=== PATIENT | male | born 1985 | race Caucasian/White ===

== ENCOUNTER 2019-09-15 14:26 | Emergency (ER) | payer SELFPAY ==
[~2019-09-15] VITALS: Ht 180.3 cm; Wt 99.8 kg
[2019-09-15] MEDS ORDERED: SODIUM CHLORIDE 0.9% 1000ML 1,000 ML IV SCH (15:30)
[2019-09-15] MEDS ORDERED: SODIUM CHLORIDE 0.9% 1000ML 1,000 ML ONE (15:40)
[2019-09-15] MEDS ORDERED: VANCOMYCIN 1GM/NS 250 ML 250 ML IV ONE (16:00)
--- NOTE | 2019-09-15 16:08 | Emergency Department Note ---
History of Present Illnes History of Present Illness Chief Complaint: Drug Abuse/Intoxication History of Present Illness Patient is a 34-year-old male, with history of IV drug abuse, who presents with a three-day history of progressive redness, swelling, pain of the dorsal aspect of the left hand. Patient has a history of injection drug use, and states that earlier this week he did inject heroin into the left hand. He states that he may have injected into the tissues, rather than the vein. He denies any fever, chills, nausea or vomiting. Historian: Patient Arrival Mode: [employer] Required: No Onset (how long ago): day(s) (3) Location: left hand Quality: left hand Radiation: non-radiation Severity: severe Onset quality: sudden Duration (how long): day(s) (3) Timing of current episode: constant Progression: worsening Relieving factors: none Exacerbating factors: none Associated symptoms: denies other symptoms Treatments prior to arrival: NSAID, antipyretic Risk factors: IVDA Past Medical/Family History Physician Review I have reviewed the patient's past medical and family history. Any updates have been documented here. Past Medical History Recent Fever: No Clinical Suspicion of Infectio: Yes New/Unexplained Change in Ment: No Other Medical History: IVDA Past Surgical History: Back Surgery Other Surgery: Mammoplasty - due to gynecomastia Social History Smoking Cessation: Current every day smoker Counseling Performed: Yes Alcohol Use: Occasional Any Illegal Drug Use: Yes (heroin) TB Exposure/Symptoms: No Physically hurt or threatened: No Family History Family history of heart diseas: No Other Last Tetanus: 2-3 years ago Any Pre-Existing Lines (PICC,: No Is patient up to date on immun: No Review of Systems Review of Systems Constitutional: no symptoms EENTM: no symptoms Cardiovascular: no symptoms Respiratory: no symptoms Gastrointestinal: no symptoms Musculoskeletal: no symptoms, other (pain, swelling and redness of dorsal aspect of left hand) Neurological: no symptoms Review of other systems All other systems reviewed and negative. Physical Exam Related Data Allergies: Coded Allergies: No Known Allergies (Unverified , 09/15/19) Vital signs reviewed: Yes Physical Exam CONSTITUTIONAL Constitutional: well-developed, well-nourished HENT HENT: normocephalic, atraumatic, oropharynx clear/moist, nose normal HENT L/R: left ext ear normal, right ext ear normal EYES Eyes: PERRL, conjunctivae normal NECK Neck: ROM normal PULMONARY Pulmonary: effort normal, breath sounds normal CARDIOVASCULAR Cardiovascular: regular rhythm, heart sounds normal, capillary refill normal, normal rate, other (no murmur or rub) GASTROINTESTINAL Abdominal: soft, nontender, bowel sounds normal GENITOURINARY SKIN Skin: warm, erythema, other (erythema, swelling, tenderness, and warmth of the dorsal aspect of the left hand, especially involving the 3rd, 4th and 5th fingers; No fluctuance; excoriations of both anterior tibial areas; large exoriation on the top of the left foot; no drainage;) MUSCULOSKELETAL Musculoskeletal: tenderness, swelling (dorsal aspect of left hand; no fluctuance;) NEUROLOGICAL Neurological: alert, oriented x 3, no gross motor or sensory deficits PSYCHOLOGICAL Psychological: mood/affect normal, judgement normal Results Laboratory Laboratory CBC - nl; CMP - nl, K = 3.5 Lab results reviewed: Yes Imaging Imaging results reviewed: Yes Impressions [place] [id number] Patient Name: FRANCISCA HEAD MR #: [id number] : 1985 Age/Sex: 34/M Req #: [id number] [facility] Physician: Ordered by: FAHAD SERNA MD Report #: [id number] Location: [facility] [place] Room/Bed: Procedure: [id number] HOPD/HAND 3 VIEW LT - HOPD Exam Date: 09/15/19 Exam Time: 1621 REPORT STATUS: Signed Exam: Left hand radiographs-3 views History: Cellulitis, injection drug use Comparison: None. Findings/Impression: No evidence of acute fracture or malalignment. Soft tissue edema in the hand. No evidence of bony erosion or periosteal reaction to suggest osteomyelitis. Signed by: Dr. Alana Kennedy MD on 09/15/2019 4:36 PM Dictated By: ALANA KENNEDY MD 34 Transcribed By: GREGOR on 09/15/191635 COPY TO: FAHAD SERNA MD~ Diagnostics Tests Diagnostic test(s) reviewed: Yes Critical Care Time Subsequent provider I assumed direction of critical care for this patient from another provider of my specialty. Assessment & Plan Assessment & Plan Final Impression: (1) Uses drugs by injection (2) Hand pain, left (3) Cellulitis of hand, left Assessment & Plan - Pt refused admission to the hospital, due to desire to go out and smoke, ad lia. Declined Nicotine patch. - Pt received nearly the full dose of IV Vancomycin and then he took out his own IV. The Unasyn 1.5 gram was given IM. Return to the ER, if you develop fever, chill, nausea, vomiting, worsening pain, swelling or redness of the left hand, or if other sores begin to look infected. Take ALL antibiotics, and take with food. *Elevate the left hand above the level of the heart, to help with pain and swelling. Apply ice to the area, to help with pain, as well.* Follow-up with [facility] in [facility] [phone] or [facility] [phone]. You may take Ibuprofen 200 mg - 4 tabs together every 8 hours (3x/day), as needed, for pain. Depart Disposition: HOME, SELF-retirement Meds Active Scripts Clindamycin Hcl (CLINDAMYCIN HCL) 150 Mg Capsule, 300 MG PO QID for infection for 10 Days, #40 TAB 0 Refills 2 TABS PO TID Prov:FAHAD SERNA MD 09/15/19 Sulfamethoxazole/Trimethoprim (BACTRIM DS TABLET) 1 Each Tablet, 1 TAB PO BID for infection for 10 Days, #20 TAB 0 Refills Prov:FAHAD SERNA MD 09/15/19 Medications in the ED Sodium Chloride 1,000 ml @ 0 mls/hr Q0M IV ; Start 09/15/19 at 15:30; Stop 10/15/19 at 15:29 Sodium Chloride 1,000 ml @ STK-MED ONCE .ROUTE ; Start 09/15/19 at 15:40; Stop 09/15/19 at 15:34; Status DC Vancomycin HCl 250 ml @ 167 mls/hr ONCE ONCE IV ; Start 09/15/19 at 16:00; Stop 09/15/19 at 17:29; Status UNV Ampicillin Sodium/ Sulbactam Sodium 100 ml @ 200 mls/hr ONCE IV ; Start 09/15/19 at 18:00; Stop 09/22/19 at 17:59; Status UNV FAHAD SERNA MD Sep 15, 2019 16:08
--- NOTE | 2019-09-15 16:39 | Diagnostic Imaging Report ---
Exam: Left hand radiographs-3 views History: Cellulitis, injection drug use Comparison: None. Findings/Impression: No evidence of acute fracture or malalignment. Soft tissue edema in the hand. No evidence of bony erosion or periosteal reaction to suggest osteomyelitis. Signed by: Dr. Herminio Adames MD on 09/15/2019 4:36 PM
--- NOTE | 2019-09-15 17:00 | NUR ---
[employer] AT BEDSIDE SPEAKING WITH PATIENT.
[2019-09-15] MEDS ORDERED: KETOROLAC TROMETHAMINE 30 MG/ML VIAL IV STA (17:03)
[2019-09-15] MEDS ORDERED: AMPICILLIN SOD/SULBACTAM 3 GM VIAL ONE (17:14)
[2019-09-15] MEDS ORDERED: SODIUM CHLORIDE 0.9% 0 ML ONE (17:15)
[2019-09-15] MEDS ORDERED: KETOROLAC TROMETHAMINE 30 MG/ML VIAL ONE (17:15)
--- NOTE | 2019-09-15 17:34 | NUR ---
PT INSTRUCTED THAT THIS IS A NONSMOKING FACILITY AND HE IS NOT ALLOWED TO GO OUTSIDE AND SMOKE WITH A IV IN HAND
[2019-09-15] MEDS ORDERED: AMPICILLIN SOD/SULBACTAM 3GM 100 ML IV SCH (18:00)
--- NOTE | 2019-09-15 18:00 | NUR ---
PT PRESENTED TO NURSING STATION AND STATED HE WAS READY TO GO, PT HAD REMOVED HIS IV BEFORE MEDICATIONS WERE COMPLETED. DR SERNA AWARE. 100 CC OF VANC WAS STILL IN BAG. PT SIGNED OUT ama FOR ADMISSION
[2019-09-15] MEDS ORDERED: BACTRIM DS TAB1 EACH PO (18:31)
[2019-09-15] MEDS ORDERED: CLINDAMYCIN HC150 MG PO (18:32)
[2019-09-15] MEDS ORDERED: AMPICILLIN SOD INJ ONE (18:45)
[2019-09-15] MEDS ORDERED: STERILE WATER INJ ONE (18:45)
[2019-09-15] MEDS ORDERED: SULBACTAM INJ ONE (18:45)
--- NOTE | 2019-09-15 18:47 | NUR ---
PT ON PHONE AT NURSING STATION TO MAKE A PHONE CALL TO GET RIDE HOME.
--- NOTE | 2019-09-15 18:55 | NUR ---
PT ALERT AND ORIENTED WITH STEADY GAIT AT THE TIME OF DISCHARGE.
== END 2019-09-15 19:00 | disposition home or self-care (01) ==
LOC: FSED 14:26
DX: M79.642 Pain in left hand (principal); L03.114 Cellulitis of left upper limb; F11.90 Opioid use, unspecified, uncomplicated; F17.210 Nicotine dependence, cigarettes, uncomplicated
CPT/HCPCS: 73130; 80053; 85025; 96372; 96374; 99283; J0295 ×2; J1885; J3370; J7030; J7050